=== PATIENT | female | born 1945 ===

== ENCOUNTER 2022-01-28 20:48 | Inpatient (IN) | payer OTHER ==
[~2022-01-28] VITALS: Ht 160 cm; Wt 61.2 kg
[~2022-01-28 20:48] MED LIST: ACET-9533 PO; APIX5TAB PO; BUSP15TA3 PO; GABA-636 PO; HYDR-1098 PO; INSU-1165 SUBQ; INSU100V6 SUBQ; LORA-478; ONDA-188 SL; PANT40EC56 PO; QUET100T44 PO; SOTA80TA PO
[2022-01-28 21:06] VITALS: BP 134/106
--- NOTE | 2022-01-28 21:10 | NUR ---
PT DELIA JOHNSTONS
--- NOTE | 2022-01-28 21:12 | NUR ---
PT BIB BLS FROM [facility] C/O GENERALIZED ABDOMINAL PAIN X3 DAYS, SOB X 3 DAYS. +WEAK PRODUCTIVE COUGH, +WHEEZING. PER EMS PT ALSO WITH INCREASED WEAKNESS, AND DECREASED APPETITE. PMH HTN, DM, AFIB, CKD, HLD, GERD, SCHIZOPHRENIA, COVID 19, ANXIETY
--- NOTE | 2022-01-28 21:12 | NUR ---
PT PLACED IN ROOM 8
--- NOTE | 2022-01-28 21:15 | NUR ---
NOTIFIED OF POSSIBLE SEPSIS ALERT
--- NOTE | 2022-01-28 21:20 | NUR ---
DR. COHEN AT BEDSIDE
[2022-01-28] MEDS ORDERED: NACL 0.9% 500 ML IV ONE (21:30)
[2022-01-28] MEDS ORDERED: ALBUTEROL SULFATE/IPRATROPIU 3 ML SOL IH ONE (21:30)
--- NOTE | 2022-01-28 21:34 | NUR ---
XRAY AT BEDSIDE
[2022-01-28 21:41] LABS: BASOPHILS % (AUTO) 0.9 % (0.0-2.0); EOSINOPHILS % (AUTO) 0.6 % (0.0-4.0); HEMATOCRIT 34.5 % (36-48); HEMOGLOBIN 11.1 g/dL (12.0-16.0); LYMPHOCYTES # (AUTO) 0.7 K/uL (2.5-16.5); LYMPHOCYTES % (AUTO) 13.9 % (20.5-51.1); MEAN CORPUSCULAR HEMOGLOBIN 31 pg (27-31); MEAN CORPUSCULAR HGB CONC 32 g/dL (33-37); MEAN CORPUSCULAR VOLUME 95.1 fL (80-94); MONOCYTES # (AUTO) 0.5 K/uL (0.8-1.0); MONOCYTES % (AUTO) 10.5 % (1.7-9.3); NEUTROPHILS # (AUTO) 3.7 K/uL (1.8-7.7); NEUTROPHILS % (AUTO) 74.1 % (42.2-75.2); PLATELET COUNT (AUTO) 156 K/uL (140-450); RED BLOOD CELL COUNT(AUTO) 3.63 MIL/uL (4.20-5.40); RED CELL DISTRIBUTION WIDTH 16.3 % (11.6-13.7)
--- NOTE | 2022-01-28 21:45 | NUR ---
RT PAGED FOR TX
--- NOTE | 2022-01-28 21:54 | NUR ---
RT AT BEDSIDE
[2022-01-28 22:01] LABS: ALBUMIN 2.9 g/dL (3.4-5.0); ANION GAP 16.6 (8-16); ASPARTATE AMINOTRANSFERASE 27 U/L (15-37); CARBON DIOXIDE 22.1 mmol/L (21-32); CHLORIDE 106 mmol/L (98-107); GLUCOSE 92 mg/dL (74-106); POTASSIUM 5.7 mmol/L (3.5-5.1); SODIUM SERUM 139 mmol/L (136-145); TOTAL BILIRUBIN 0.6 mg/dL (0.0-1.0); UREA NITROGEN, BLOOD 53 mg/dL (7-18)
--- NOTE | 2022-01-28 22:12 | NUR ---
DR COSME AT BEDSIDE
--- NOTE | 2022-01-28 22:15 | NUR ---
CALLED LAB TO VERIFY POTASSIUM LEVEL/ HEMOLYZED. PER LAB SPECIMEN IS MILDLY HEMOLYZED. WOULD LIKE REDRAW. LAB NOTIFIED
[2022-01-28] MEDS ORDERED: METOPROLOL 5 MG/5 ML VIAL IVP ONE (22:50)
[2022-01-28] MEDS ORDERED: OSELTAMIVIR PHOSPHATE 75 MG CAP PO ONE (22:55)
[2022-01-28 23:04] LABS: APPEARANCE,URINE HAZY (CLEAR); BILIRUBIN,URINE NEGATIVE (NEGATIVE); BLOOD, URINE 3+ (NEGATIVE); COLOR,URINE YELLOW (YELLOW); LEUKOCYTE ESTERASE ,URINE 2+ (NEGATIVE); NITRITE, URINE NEGATIVE (NEGATIVE); UGLUCOSE NEGATIVE (NEGATIVE)
[2022-01-28 23:19] LABS: RBC,URINE 0-5 /HPF (0-5); WBC,URINE 0-5 /HPF (0-5)
[2022-01-28 23:20] LABS: CHLORIDE 106 mmol/L (98-107); POTASSIUM 5.4 mmol/L (3.5-5.1); SODIUM SERUM 140 mmol/L (136-145)
[2022-01-28 23:21] LABS: ANION GAP 18.5 (8-16); CARBON DIOXIDE 20.9 mmol/L (21-32); GLUCOSE 94 mg/dL (74-106); UREA NITROGEN, BLOOD 52 mg/dL (7-18)
[2022-01-28] MEDS ORDERED: FUROSEMIDE 40 MG/4 ML VIAL IVP ONE (23:45)
[2022-01-28] MEDS ORDERED: cefTRIAXone 1,000 MG VIAL ONE (23:59)
[2022-01-29] MEDS ORDERED: QUEtiapine FUMARATE 100 MG TAB PO ONE (03:40)
--- NOTE | 2022-01-29 04:06 | NUR ---
Patient will be admitted to care of [facility]. Admited to TELE. Will go to [id number]. Belongings list completed. Report to THUAN CORTES.
--- NOTE | 2022-01-29 04:20 | NUR ---
PT TRANSPORTED FROM ER VIA GURNEY. PT IS AAOX2 WITH CONFUSION. PT IS ON 2L NC WITH NO RESPIRATORY DISTRESS. PT HAS RIGHT HAND 22 GAUGE SALINE LOCK. PT IS NON AMBULATORY. PT WAS CLEANED AND CHANGED. PLAN OF CARE DISCUSSED. SAFETY PRECAUTIONS TAKEN. WILL CONTINUE TO MONITOR THE PT.
[2022-01-29 04:30] VITALS: BP 143/93
[2022-01-29] MEDS ORDERED: ACETAMINOPHEN 325 MG TAB PO PRN (05:55)
[2022-01-29] MEDS ORDERED: MORPHINE SULFATE 2 MG/ML SYR IVP PRN (05:55)
[2022-01-29] MEDS ORDERED: NACL 0.9% 1,000 ML IV SCH (05:55)
[2022-01-29] MEDS ORDERED: ONDANSETRON 4 MG/2 ML VIAL IVP PRN (05:55)
[2022-01-29] MEDS ORDERED: INSULIN LISPRO SLIDING SCALE 100 UNITS/ML VIAL SUBQ PRN (06:05)
[2022-01-29] MEDS ORDERED: DEXTROSE 50% 50 ML SYR IVP PRN ×2 (06:05→08:00)
[2022-01-29] MEDS ORDERED: cefTRIAXone 1,000 MG VIAL ONE (06:51)
[2022-01-29] MEDS: BLOOD GLUCOSE MONITORING 1 DEV DEV FS SCH ×4 (06:57→20:25)
--- NOTE | 2022-01-29 06:58 | NUR ---
SCHEDULE MEDICATION GIVEN. NO ADVERSE REACTION NOTED. WILL CONTINUE TO MONITOR THE PT.
--- NOTE | 2022-01-29 07:13 | NUR ---
ENDORSED PT TO DAY SHIFT HOST/HOSTESS RESTAURANT SONG FOR CONTINUITY OF CARE. PT IS STABLE.
--- NOTE | 2022-01-29 07:14 | NUR ---
RECEIVED REPORT FROM SCRUM PROJECT MANAGER NURSE JANELLE FOR CONTINUITY OF CARE. PT AWAKE, IN BED. RESPIRATORY EVEN AND UNLABORED ON 2L NC. NO DISTRESS NOTED. ON DIRECTOR BUSINESS DEVELOPMENT. INCONTINENT TO BOWEL AND BLADDER. SKIN INTACT, WARM AND DRY TO TOUCH. CALL LIGHT WITHIN REACH. SAFETY PRECAUTIONS IN PLACE.
[2022-01-29 08:00] VITALS: BP 160/76
[2022-01-29] MEDS ORDERED: SOTALOL 80 MG TAB PO SCH (09:00)
[2022-01-29] MEDS ORDERED: FUROSEMIDE 40 MG/4 ML VIAL IVP SCH (09:00)
[2022-01-29] MEDS ORDERED: OSELTAMIVIR PHOSPHATE 75 MG CAP PO SCH (09:00)
[2022-01-29] MEDS: hydrALAZINE 25 MG TAB PO SCH ×3 (09:26→17:13)
[2022-01-29] MEDS: GABAPENTIN 100 MG CAP PO SCH ×3 (09:26→17:13)
[2022-01-29] MEDS: APIXABAN 2.5 MG TAB PO SCH ×3 (09:28→23:50)
[2022-01-29] MEDS: QUEtiapine FUMARATE 100 MG TAB PO SCH ×3 (09:29→23:50)
--- NOTE | 2022-01-29 09:30 | NUR ---
DUE MEDS ADMINISTERED. PT TOLERATED WELL.
--- NOTE | 2022-01-29 09:54 | NUR ---
PT CHECKED AND SEEN BY DR CASTILLO.
--- NOTE | 2022-01-29 10:00 | NUR ---
REPORT GIVEN TO SEBASTIAN FAM. SCHEDULED IV MED ADMINISTERED BY SEBASTIAN.
[2022-01-29] MEDS: FUROSEMIDE 40 MG/4 ML VIAL IVP SCH ×2 (10:16→17:00)
--- NOTE | 2022-01-29 10:24 | NUR ---
PATIENT HAS BEEN SCREENED AND CATEGORIZED MODERATE NUTRITION RISK. PATIENT WILL BE SEEN WITHIN 3-5 DAYS OF ADMISSION. 02/02/2212/28/22 REVIEWED BY VILMA BERGMAN RD
[2022-01-29] MEDS ORDERED: BLOOD GLUCOSE MONITORING 1 DEV DEV FS SCH (11:30)
[2022-01-29] MEDS: INSULIN LISPRO SLIDING SCALE 100 UNITS/ML VIAL SUBQ PRN ×3 (11:30→20:25)
--- NOTE | 2022-01-29 11:37 | NUR ---
SLIDING SCALE INSULIN GIVEN FOR BS 228.
[2022-01-29 12:00] VITALS: BP 136/74
--- NOTE | 2022-01-29 12:36 | NUR ---
MEJIA CATHETER INSERTED. PT TOLERATED WELL.
--- NOTE | 2022-01-29 13:19 | NUR ---
PT CHECKED AND SEEN BY DR VASU FISHMAN.
--- NOTE | 2022-01-29 13:32 | NUR ---
DC PLANNING PT CURRENTLY HAS INFLUENZA, THEREFORE, PT NOT SEEN IN PERSON. SW OUTREACHED TO [facility] TO GATHER COLLATERAL INFORMATION PTS EMERGENCY CONTACT IS NOT A WORKING PHONE NUMBER. SPOKE WITH CLEMENTINE WHO REPORTS PT IS RESIDENT OF [facility], DATE OF RESIDENCE 09/04/21. CLEMENTINE REPORTS EMERGENCY CONTACT [facility] [place], AND IS AWARE PHONE NUMBER IS NOT A WORKING NUMBER. CLEMENTINE REPORTS PT IS SELF RESPONSIBLE. CLEMENTINE DENIES PT HAS ADV ON FILE WITH MR HOWEVER, REPORTS PT HAS POLST ON FILE WITH FACILITY. PER CLEMENTINE, POLST IS FULL TX. PT IS REPORTED TO UTILIZE WC AT [facility] AND REQUIRES ASSISTANCE WITH ALL ADL'S. PT IS REPORTED TO BE COMPLIANT IN ALL CARE AND IS COMPLIANT WITH MEDICATIONS. MEDICATION ADMINISTERED BY STAFF. CLEMENTINE REPORTS NO KNOWN ACTIVE FAMILY INVOLVEMENT. DC PLAN IS FOR PT TO RETURN TO [facility] WHEN MEDICALLY STABLE. Addendum: 01/29/22 at 1334 by Marcelo MENA Amended: Links added.
[2022-01-29] MEDS ORDERED: ALBUTEROL SULFATE/IPRATROPIU 3 ML SOL IH PRN (14:50)
--- NOTE | 2022-01-29 14:52 | NUR ---
RECEIVED ORDER FROM DR CASTILLO FOR BREATHING TREATMENT PRN [id number] [id number].
--- NOTE | 2022-01-29 15:07 | NUR ---
PHARMACIST RECOMMENDED TO RENALLY ADJUST SOTALOL TO DAILY. DR CASTILLO MADE AWARE. OK TO ADJUST DAILY PER MD.
[2022-01-29 16:00] VITALS: BP 130/79
--- NOTE | 2022-01-29 17:22 | NUR ---
SCHEDULED MEDS ADMINISTERED. SLIDING SCALE INSULIN ADMINISTERED FOR BS 211. SEBASTIAN HYDE GAVE IVP LASIX. PT TOLERATED WELL.
--- NOTE | 2022-01-29 19:04 | NUR ---
GAVE BEDSIDE REPORT TO RN JANELLE FOR CONTINUITY OF CARE. ALL NEEDS MET THROUGHOUT SHIFT. PT IS IN STABLE CONDITION.
--- NOTE | 2022-01-29 19:05 | NUR ---
RECEIVED REPORT FROM DAY SHIFT ARIELLA ZULETA FOR CONTINUITY OF CARE. PT IS CURRENTLY RESTING IN BED WITH NO RESPIRATORY DISTRESS. PT IS ON NC 2L. PT HAS FC INSERTED DRAINING TO GRAVITY. PT HAS RIGHT HAND 22 GAUGE SALINE LOCK. BED AT THE LOWEST POSITION. PT POSITION SEMI BRANDON. CALL LIGHT WITHIN REACH. SAFETY PRECAUTIONS TAKEN. WILL CONTINUE TO MONITOR THE PT.
[2022-01-29 20:00] VITALS: BP 143/79
[2022-01-29] MEDS: OSELTAMIVIR PHOSPHATE 6 MG/ML SUSPENSION PO SCH ×2 (21:00→23:50)
--- NOTE | 2022-01-29 21:17 | NUR ---
TRIED TO GIVE PT PO MEDICATION EARLIER. PT WAS VERY DROWSY AND DID NOT WANT TO WAKE UP. THEN TRIED TO WAKE UP PT AGAIN LATER. PT WAS ABLE TO WAKE UP BUT REFUSED PO MEDICATION.
[2022-01-30] VITALS: BP 105/61
--- NOTE | 2022-01-30 | NUR ---
PT IS AWAKE AND ALERT. ASK PT IF SHE IS WILLING TO TAKE HER TAMIFLU AND OTHER MEDICATIONS. PT AGREED. 2100 SCHEDULE MEDICATION GIVEN. NO OTHER COMPLAINS. WILL CONTINUE TO MONITOR THE PT.
--- NOTE | 2022-01-30 02:32 | NUR ---
PT OBSERVED. PT IS SLEEPING COMFORTABLY IN BED. PT NOT IN ANY DISTRESS. SAFETY PRECAUTIONS TAKEN. WILL CONTINUE TO MONITOR THE PT.
[2022-01-30 04:00] VITALS: BP 104/68
--- NOTE | 2022-01-30 04:49 | NUR ---
PT IS OBSERVED. PT IS SLEEPING COMFORTABLY IN BED. PT IS NOT IN ANY DISTRESS. BREATHING EVEN AND UNLABORED. SAFETY PRECAUTIONS TAKEN. WILL CONTINUE TO MONITOR THE PT.
--- NOTE | 2022-01-30 07:15 | NUR ---
ENDORSED PT TO DAY SHIFT PATTERN STAMPER SONG FOR CONTINUITY OF CARE. PT IS STABLE.
--- NOTE | 2022-01-30 07:16 | NUR ---
RECEIVED REPORT FROM DAY SHIFT CHRISTA LUIS FOR CONTINUITY OF CARE. PT SLEEPING, AROUSABLE BY VERBAL STIMULI AND SHAKING. 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 ON SPICE BLENDER. RESPIRATIONS EVEN AND UNLABORED ON 2L, NC. NO DISTRESS NOTED. WITH MEJIA CATHETER IN PLACE, INTACT AND DRAINING WELL. CALL LIGHT WITHIN REACH. SAFETY PRECAUTIONS IN PLACE.
[2022-01-30 07:17] LABS: BASOPHILS % (AUTO) 0.8 % (0.0-2.0); EOSINOPHILS # (AUTO) 0.1 K/uL (0-0.4); HEMATOCRIT 30.2 % (36-48); HEMOGLOBIN 9.9 g/dL (12.0-16.0); LYMPHOCYTES # (AUTO) 0.5 K/uL (2.5-16.5); LYMPHOCYTES % (AUTO) 13.2 % (20.5-51.1); MEAN CORPUSCULAR HEMOGLOBIN 30 pg (27-31); MEAN CORPUSCULAR HGB CONC 33 g/dL (33-37); MONOCYTES # (AUTO) 0.4 K/uL (0.8-1.0); MONOCYTES % (AUTO) 11.5 % (1.7-9.3); NEUTROPHILS # (AUTO) 2.5 K/uL (1.8-7.7); NEUTROPHILS % (AUTO) 70.5 % (42.2-75.2); PLATELET COUNT (AUTO) 137 K/uL (140-450); RED BLOOD CELL COUNT(AUTO) 3.25 MIL/uL (4.20-5.40); RED CELL DISTRIBUTION WIDTH 15.3 % (11.6-13.7); WHITE BLOOD COUNT (AUTO) 3.6 K/uL (4.8-10.8)
[2022-01-30 07:20] LABS: ANION GAP 13.7 (8-16); CARBON DIOXIDE 23.2 mmol/L (21-32); CHLORIDE 105 mmol/L (98-107); GLUCOSE 127 mg/dL (74-106); POTASSIUM 3.9 mmol/L (3.5-5.1); SODIUM SERUM 138 mmol/L (136-145); UREA NITROGEN, BLOOD 55 mg/dL (7-18)
[2022-01-30 07:31] LABS: MAGNESIUM 1.8 mg/dL (1.8-2.4); PHOSPHORUS 5.3 mg/dL (2.5-4.9)
[2022-01-30 08:00] VITALS: BP 130/80
[2022-01-30] MEDS: BLOOD GLUCOSE MONITORING 1 DEV DEV FS SCH ×4 (08:16→20:41)
--- NOTE | 2022-01-30 08:16 | NUR ---
NO INSULIN COVERAGE FOR BS 127.
--- NOTE | 2022-01-30 08:39 | NUR ---
RECEIVED CRITICAL LAB VALUE FOR MRSA NARES +, MADE AWARE, ORDERS RECEIVED.
[2022-01-30] MEDS ORDERED: SOTALOL 80 MG TAB PO SCH (09:00)
[2022-01-30] MEDS: hydrALAZINE 25 MG TAB PO SCH ×3 (09:09→16:36)
[2022-01-30] MEDS: QUEtiapine FUMARATE 100 MG TAB PO SCH ×2 (09:10→20:50)
[2022-01-30] MEDS: GABAPENTIN 100 MG CAP PO SCH ×3 (09:10→16:36)
[2022-01-30] MEDS: CHLORHEXADINE GLUC 2% CLOTH TP SCH (09:10)
[2022-01-30] MEDS: MUPIROCIN CA NASAL 2% 1GM TUBE NS SCH (09:11)
[2022-01-30] MEDS: APIXABAN 2.5 MG TAB PO SCH ×2 (09:11→20:50)
--- NOTE | 2022-01-30 09:24 | NUR ---
PT CHECKED AND SEEN BY DR CASTILLO. PER MD GÓMEZ TO GIVE ELIQUIS. ADMINISTERED DUE MEDS. PT TOLERATED WELL.
[2022-01-30] MEDS: FUROSEMIDE 40 MG/4 ML VIAL IVP SCH ×2 (09:27→16:37)
--- NOTE | 2022-01-30 09:27 | NUR ---
IV MED GIVEN BY SEBASTIAN PEOPLES.
[2022-01-30] MEDS: INSULIN LISPRO SLIDING SCALE 100 UNITS/ML VIAL SUBQ PRN ×3 (11:32→20:54)
--- NOTE | 2022-01-30 11:36 | NUR ---
SLIDING SCALE INSULIN ADMINISTERED FOR BS 175.
[2022-01-30 12:00] VITALS: BP 138/78
[2022-01-30 16:00] VITALS: BP 110/54
--- NOTE | 2022-01-30 16:43 | NUR ---
ADMINISTERED DUE MEDS. IV MED GIVEN BY SEBASTIAN PEOPLES. SLIDING SCALE INSULIN GIVEN FOR BS 188. PT TOLERATED WELL.
--- NOTE | 2022-01-30 17:12 | NUR ---
RT AT BEDSIDE. NC WAS TAKEN OFF OF PT. PT NOW ON RA SATTING AT 96%. WILL CONTINUE TO MONITOR.
--- NOTE | 2022-01-30 19:15 | NUR ---
GAVE BEDSIDE REPORT TO SEBASTIAN LUIS AND MILTON MANNING FOR CONTINUITY OF CARE. ALL NEEDS MET THROUGHOUT SHIFT. PT IS IN STABLE CONDITION.
--- NOTE | 2022-01-30 19:20 | NUR ---
RECEIVED PATIENT LYING ON THE BED, ALERT, ORIENTED TO PERSON, NO SIGNS OF DISTRESS NOTED, ON ROOM AIR, HAS MEJIA CATHETER DRAINING LIGHT YELLOW URINE TO BAG. PATIENT HAS IV ACCESS SITE ON LEFT HAND G24, FLUSH WITHOUT RESISTANCE, TKO. CALL LIGHT WITHIN REACH, BED IN LOW AND LOCKED POSITION. PATIENT ON CONTACT AND DROPLET PRECAUTIONS, POSITIVE FOR MRSA AND INFLUENZA A FROM REPORT.
[2022-01-30 20:00] VITALS: BP 95/53
[2022-01-30] MEDS: SOTALOL 80 MG TAB PO SCH (20:48)
[2022-01-30] MEDS: OSELTAMIVIR PHOSPHATE 6 MG/ML SUSPENSION PO SCH (20:53)
--- NOTE | 2022-01-30 21:00 | NUR ---
DUE MEDICATIONS GIVEN ORDERED. SOTATOL 80MG TAB HOLD PER MD, BP 95/53, HR 60 AND PATIENT ON SR ON TELEMETRY. SAFETY PRECAUTIONS MAINTAINED, CALL LIGHT WITHIN REACH. WILL CONTINUE TO MONITOR THE PATIENT.
[2022-01-31] VITALS: BP 123/53
--- NOTE | 2022-01-31 00:05 | NUR ---
VITALS TAKEN T 98.6, HR 63, BP 123/53, RESP 16 AND O2 SATS 93% ON ROOM AIR, PATIENT DENIES PAIN, DENIES SOB. BEDSIDE CARE DONE, PATIENT REPOSITIONED, CALL LIGHT WITHIN REACH, BED IN LOW AND LOCKED POSITION. WILL CONTINUE TO MONITOR THE PATIENT.
--- NOTE | 2022-01-31 02:56 | NUR ---
CHECKED ON PATIENT. PATIENT IS ASLEEP, BREATHING EVEN AND NON LABORED ON ROOM AIR. SAFETY PRECAUTIONS IN PLACE. WILL CONTINUE TO MONITOR THE PATIENT.
[2022-01-31 04:00] VITALS: BP 142/58
--- NOTE | 2022-01-31 04:10 | NUR ---
MORNING CARE DONE, PATIENT DENIES PAIN, NO SIGNS OF DISTRESS NOTED. CALL LIGHT WITHIN REACH.
--- NOTE | 2022-01-31 05:30 | NUR ---
IV ROCEPHIN GIVEN ORDERED.
[2022-01-31] MEDS: BLOOD GLUCOSE MONITORING 1 DEV DEV FS SCH ×4 (06:31→20:53)
[2022-01-31] MEDS: INSULIN LISPRO SLIDING SCALE 100 UNITS/ML VIAL SUBQ PRN ×3 (06:32→17:32)
--- NOTE | 2022-01-31 07:19 | NUR ---
ENDORSED PATIENT TO DAY NURSE ALBA FOR CONTINUITY OF CARE. NEEDS MET THROUGHOUT THE SHIFT. PATIENT IN STABLE CONDITION.
[2022-01-31 07:26] LABS: BASOPHILS % (AUTO) 0.4 % (0.0-2.0); EOSINOPHILS # (AUTO) 0.1 K/uL (0-0.4); EOSINOPHILS % (AUTO) 3.5 % (0.0-4.0); HEMATOCRIT 29.1 % (36-48); HEMOGLOBIN 9.6 g/dL (12.0-16.0); LYMPHOCYTES # (AUTO) 0.8 K/uL (2.5-16.5); LYMPHOCYTES % (AUTO) 18.5 % (20.5-51.1); MEAN CORPUSCULAR HEMOGLOBIN 31 pg (27-31); MEAN CORPUSCULAR HGB CONC 33 g/dL (33-37); MEAN CORPUSCULAR VOLUME 93.1 fL (80-94); MONOCYTES # (AUTO) 0.5 K/uL (0.8-1.0); MONOCYTES % (AUTO) 12.3 % (1.7-9.3); NEUTROPHILS # (AUTO) 2.8 K/uL (1.8-7.7); NEUTROPHILS % (AUTO) 65.3 % (42.2-75.2); PLATELET COUNT (AUTO) 139 K/uL (140-450); RED BLOOD CELL COUNT(AUTO) 3.13 MIL/uL (4.20-5.40); RED CELL DISTRIBUTION WIDTH 15.1 % (11.6-13.7); WHITE BLOOD COUNT (AUTO) 4.2 K/uL (4.8-10.8)
[2022-01-31 07:29] LABS: CARBON DIOXIDE 25.1 mmol/L (21-32); CHLORIDE 101 mmol/L (98-107); CREATININE 3.3 mg/dL (0.6-1.3); GLUCOSE 167 mg/dL (74-106); POTASSIUM 4.1 mmol/L (3.5-5.1); SODIUM SERUM 136 mmol/L (136-145); UREA NITROGEN, BLOOD 58 mg/dL (7-18)
--- NOTE | 2022-01-31 07:36 | NUR ---
GOT REPORT FROM THE NIGHT NURSE, PT AWAKE DISCUSSED POC FOR THE DAY NO SOB.[id number]
[2022-01-31] MEDS: APIXABAN 2.5 MG TAB PO SCH ×2 (09:24→20:48)
[2022-01-31] MEDS: MUPIROCIN CA NASAL 2% 1GM TUBE NS SCH (09:24)
[2022-01-31] MEDS: CHLORHEXADINE GLUC 2% CLOTH TP SCH (09:25)
[2022-01-31] MEDS: hydrALAZINE 25 MG TAB PO SCH ×3 (09:25→17:23)
[2022-01-31] MEDS: GABAPENTIN 100 MG CAP PO SCH ×3 (09:28→17:23)
[2022-01-31] MEDS: QUEtiapine FUMARATE 100 MG TAB PO SCH ×2 (09:29→20:49)
[2022-01-31] MEDS: FUROSEMIDE 40 MG/4 ML VIAL IVP SCH (09:32)
[2022-01-31] MEDS: SOTALOL 80 MG TAB PO SCH ×2 (09:35→20:43)
[2022-01-31] MEDS: ERTAPENEM SODIUM 500 MG in NACL 0.9% 50 ML IV SCH (11:53)
[2022-01-31 12:46] VITALS: BP 133/60
[2022-01-31 16:00] VITALS: BP 142/68
--- NOTE | 2022-01-31 19:02 | NUR ---
RECEIVED REPORT FROM DAY SHIFT NURSE ALBA FOR CONTINUITY OF CARE. PT SLEEPING, EASILY AROUSABLE BY VERBAL STIMULI. RESPIRATIONS EVEN AND UNLABORED ON RA. NO DISTRESS NOTED. ON GRATING MACHINE OPERATOR. MEJIA CATHETER IN PLACE. DRAINING URINE WELL. SKIN INATCT, WARM AND DRY TO TOUCH. PT IS BLIND. PT REORIENTED TO CALL LIGHT. SAFETY PRECAUTIONS IN PLACE.
--- NOTE | 2022-01-31 19:44 | NUR ---
Patient's Plan of Care was discussed and reviewed with ARABIC TRANSLATOR: DAIJA ZULETA
[2022-01-31 20:00] VITALS: BP 126/56
[2022-01-31] MEDS: OSELTAMIVIR PHOSPHATE 6 MG/ML SUSPENSION PO SCH (20:50)
--- NOTE | 2022-01-31 21:01 | NUR ---
ADMINISTERED DUE MEDS. NO INSULIN COVERAGE FOR BS 136. PT CONTINUOUSLY MONITORED.
[2022-02-01] VITALS: BP 132/60
--- NOTE | 2022-02-01 01:05 | NUR ---
PT SLEEPING. NO DISTRESS NOTED. SAFETY PRECAUTIONS IN PLACE.
[2022-02-01 04:00] VITALS: BP 141/66
--- NOTE | 2022-02-01 04:45 | NUR ---
PERINEAL CARE DONE WITH SHOE REPAIRMAN. DRAINED MEJIA CATHETER. REPOSITIONED PT. PT REMAINED CLEAN AND DRY.
[2022-02-01] MEDS: BLOOD GLUCOSE MONITORING 1 DEV DEV FS SCH ×4 (06:41→21:03)
--- NOTE | 2022-02-01 06:42 | NUR ---
BLOOD SUGAR CHECK DONE. NO SLIDING SCALE INSULIN FOR BS 111. PT SLEEPING. RESPIRATIONS EVEN AND UNLABORED. NO DISTRESS NOTED.
--- NOTE | 2022-02-01 07:14 | NUR ---
GAVE BEDSIDE REPORT TO DAY SHIFT NURSE LM FOR CONTINUITY OF CARE. ALL NEEDS MET THROUGHOUT SHIFT. PT IS STABLE.
--- NOTE | 2022-02-01 07:15 | NUR ---
RECEIVED PT FROM TICKETING AGENT NURSE FOR CONTINUITY OF CARE.
[2022-02-01 07:27] LABS: BASOPHILS % (AUTO) 0.7 % (0.0-2.0); EOSINOPHILS # (AUTO) 0.2 K/uL (0-0.4); EOSINOPHILS % (AUTO) 6.1 % (0.0-4.0); HEMATOCRIT 28.9 % (36-48); HEMOGLOBIN 9.7 g/dL (12.0-16.0); LYMPHOCYTES # (AUTO) 0.8 K/uL (2.5-16.5); LYMPHOCYTES % (AUTO) 23.9 % (20.5-51.1); MEAN CORPUSCULAR HEMOGLOBIN 31 pg (27-31); MEAN CORPUSCULAR HGB CONC 34 g/dL (33-37); MEAN CORPUSCULAR VOLUME 91.3 fL (80-94); MONOCYTES # (AUTO) 0.5 K/uL (0.8-1.0); NEUTROPHILS % (AUTO) 56.3 % (42.2-75.2); PLATELET COUNT (AUTO) 131 K/uL (140-450); RED BLOOD CELL COUNT(AUTO) 3.17 MIL/uL (4.20-5.40); RED CELL DISTRIBUTION WIDTH 14.9 % (11.6-13.7); WHITE BLOOD COUNT (AUTO) 3.5 K/uL (4.8-10.8)
[2022-02-01 08:00] VITALS: BP 130/67
[2022-02-01] MEDS: hydrALAZINE 25 MG TAB PO SCH ×3 (08:58→16:38)
[2022-02-01] MEDS: MUPIROCIN CA NASAL 2% 1GM TUBE NS SCH (08:58)
[2022-02-01] MEDS: SOTALOL 80 MG TAB PO SCH ×2 (08:58→21:02)
[2022-02-01] MEDS: QUEtiapine FUMARATE 100 MG TAB PO SCH ×2 (08:59→21:03)
[2022-02-01] MEDS: GABAPENTIN 100 MG CAP PO SCH ×3 (08:59→16:38)
[2022-02-01] MEDS: FUROSEMIDE 40 MG/4 ML VIAL IVP SCH (09:00)
[2022-02-01] MEDS: APIXABAN 2.5 MG TAB PO SCH ×2 (09:00→21:02)
[2022-02-01] MEDS: CHLORHEXADINE GLUC 2% CLOTH TP SCH (09:13)
--- NOTE | 2022-02-01 09:19 | NUR ---
ADMINISTERED ALL SCHEDULED ORAL MEDS. PT TOLERATED WELL.
[2022-02-01 09:57] LABS: ANION GAP 17.1 (8-16); CARBON DIOXIDE 22.6 mmol/L (21-32); CHLORIDE 105 mmol/L (98-107); CREATININE 2.9 mg/dL (0.6-1.3); GLUCOSE 130 mg/dL (74-106); POTASSIUM 3.7 mmol/L (3.5-5.1); SODIUM SERUM 141 mmol/L (136-145); UREA NITROGEN, BLOOD 57 mg/dL (7-18)
[2022-02-01] MEDS: ERTAPENEM SODIUM 500 MG in NACL 0.9% 50 ML IV SCH (11:00)
[2022-02-01 12:00] VITALS: BP 121/57
[2022-02-01] MEDS: INSULIN LISPRO SLIDING SCALE 100 UNITS/ML VIAL SUBQ PRN ×2 (12:43→21:04)
[2022-02-01 16:00] VITALS: BP 140/75
--- NOTE | 2022-02-01 19:10 | NUR ---
ENDORSED PT TO ROUGHER FOR CEMENT NURSE FOR CONTINUITY OF CARE. PT IN STABLE CONDITION.
--- NOTE | 2022-02-01 19:11 | NUR ---
RECEIVED PT FROM DAY SHIFT NURSE LM FOR CONTINUITY OF CARE. PT AWAKE IN BED. ON ERGONOMICS CONSULTANT. RESPIRATIONS EVEN AND UNLABORED ON RA. NO DISTRESS NOTED. NO C/O OF PAIN. MEJIA CATHETER IN PLACE, DRAINING YELLOW URINE. IV SITE ON RH 22G, SL. CALL LIGHT WITHIN REACH. SAFETY PRECAUTIONS IN PLACE.
--- NOTE | 2022-02-01 19:45 | NUR ---
REVIEWED AND DISCUSSED PATIENT CARE WITH ARIELLA CHOE.
[2022-02-01 20:00] VITALS: BP 116/55
--- NOTE | 2022-02-01 21:20 | NUR ---
ADMINISTERED DUE MEDS. PT TOLERATED WELL. PT TOO SLEEPY, ATE A 15% OF HER DINNER AND WENT BACK TO SLEEP.
[2022-02-02] VITALS: BP 126/48
--- NOTE | 2022-02-02 02:33 | NUR ---
PT SLEEPING WITH VISIBLE CHEST RISE AND FALL. NO ACUTE DISTRESS NOTED. SAFETY PRECAUTIONS IN PLACE.
[2022-02-02 04:00] VITALS: BP 130/55
--- NOTE | 2022-02-02 05:54 | NUR ---
MORNING CARE DONE. PT NO C/O OF PAIN. NO SOB. NO DIZZINESS. PT REMAINED CLEAN AND DRY.
[2022-02-02] MEDS: BLOOD GLUCOSE MONITORING 1 DEV DEV FS SCH ×4 (06:39→21:22)
[2022-02-02] MEDS: INSULIN LISPRO SLIDING SCALE 100 UNITS/ML VIAL SUBQ PRN ×3 (06:40→21:20)
--- NOTE | 2022-02-02 06:43 | NUR ---
SLIDING SCALE INSULIN ADMINISTERED FOR BS 160.
--- NOTE | 2022-02-02 07:10 | NUR ---
RECEIVED REPORT FROM MEAT DRESSER NURSE SONG FOR CONTINUITY OF CARE. PT STABLE IN BED RESTING. NO SIGNS OF DISTRESS. ALL SAFETY PRECAUTIONS IN PLACE. WILL CONTINUE TO MONITOR.
[2022-02-02 07:15] LABS: HEMATOCRIT 29.4 % (36-48); HEMOGLOBIN 9.8 g/dL (12.0-16.0); MEAN CORPUSCULAR HEMOGLOBIN 31 pg (27-31); MEAN CORPUSCULAR HGB CONC 34 g/dL (33-37); MEAN CORPUSCULAR VOLUME 91.4 fL (80-94); PLATELET COUNT (AUTO) 147 K/uL (140-450); RED BLOOD CELL COUNT(AUTO) 3.21 MIL/uL (4.20-5.40); RED CELL DISTRIBUTION WIDTH 14.9 % (11.6-13.7); WHITE BLOOD COUNT (AUTO) 3.9 K/uL (4.8-10.8)
--- NOTE | 2022-02-02 07:23 | NUR ---
GAVE BEDSIDE REPORT TO RN MARY ELLEN FOR CONTINUITY OF CARE. ALL NEEDS MET THROUGHOUT SHIFT. PT IS STABLE.
[2022-02-02 08:00] VITALS: BP 120/53
[2022-02-02 08:38] LABS: LYMPHOCYTES % (MANUAL) 30 % (20-46)
[2022-02-02 08:39] LABS: EOSINOPHILS % (MANUAL) 2 % (0-4); MONOCYTES % (MANUAL) 11 % (5-12)
[2022-02-02 09:08] LABS: ANION GAP 14.9 (8-16); CARBON DIOXIDE 25.8 mmol/L (21-32); CHLORIDE 101 mmol/L (98-107); CREATININE 2.8 mg/dL (0.6-1.3); GLUCOSE 159 mg/dL (74-106); POTASSIUM 3.7 mmol/L (3.5-5.1); SODIUM SERUM 138 mmol/L (136-145); UREA NITROGEN, BLOOD 48 mg/dL (7-18)
[2022-02-02] MEDS: MUPIROCIN CA NASAL 2% 1GM TUBE NS SCH (09:09)
[2022-02-02] MEDS: FUROSEMIDE 40 MG/4 ML VIAL IVP SCH (09:09)
[2022-02-02] MEDS: SOTALOL 80 MG TAB PO SCH ×2 (09:10→21:16)
[2022-02-02] MEDS: hydrALAZINE 25 MG TAB PO SCH ×3 (09:10→17:14)
[2022-02-02] MEDS: APIXABAN 2.5 MG TAB PO SCH ×2 (09:11→21:18)
[2022-02-02] MEDS: QUEtiapine FUMARATE 100 MG TAB PO SCH ×2 (09:12→21:17)
[2022-02-02] MEDS: CHLORHEXADINE GLUC 2% CLOTH TP SCH (09:12)
[2022-02-02] MEDS: GABAPENTIN 100 MG CAP PO SCH ×3 (09:12→17:14)
[2022-02-02] MEDS ORDERED: ERTA1VIA2 IJ (11:05)
[2022-02-02] MEDS ORDERED: APIX2.5 PO (11:05)
[2022-02-02] MEDS: ERTAPENEM SODIUM 500 MG in NACL 0.9% 50 ML IV SCH (11:22)
[2022-02-02 12:00] VITALS: BP 136/63
[2022-02-02 16:00] VITALS: BP 130/50
--- NOTE | 2022-02-02 19:05 | NUR ---
ENDORSED PT TO COMPUTER EDUCATION TEACHER NURSE ARCENIO FOR CONTINUITY OF CARE. PT STABLE AT THIS TIME.
--- NOTE | 2022-02-02 19:10 | NUR ---
RECEIVED PT FROM AM NURSE FOR CONTINUITY OF CARE. PT IS STABLE
[2022-02-02 20:00] VITALS: BP 145/83
[2022-02-03] VITALS (7 sets, daily range): BP systolic 121–152; BP diastolic 43–86
--- NOTE | 2022-02-03 00:05 | NUR ---
PATIENT ASLEEP, ALL SAFETY MEASURES IN PLACE,NO DISTRESS NOTED
[2022-02-03] MEDS: BLOOD GLUCOSE MONITORING 1 DEV DEV FS SCH ×4 (06:47→21:33)
[2022-02-03 06:52] LABS: BASOPHILS % (AUTO) 0.6 % (0.0-2.0); EOSINOPHILS # (AUTO) 0.2 K/uL (0-0.4); EOSINOPHILS % (AUTO) 4.6 % (0.0-4.0); HEMATOCRIT 29.8 % (36-48); HEMOGLOBIN 9.8 g/dL (12.0-16.0); LYMPHOCYTES # (AUTO) 1.4 K/uL (2.5-16.5); LYMPHOCYTES % (AUTO) 25.8 % (20.5-51.1); MEAN CORPUSCULAR HEMOGLOBIN 30 pg (27-31); MEAN CORPUSCULAR HGB CONC 33 g/dL (33-37); MONOCYTES # (AUTO) 0.5 K/uL (0.8-1.0); MONOCYTES % (AUTO) 9.6 % (1.7-9.3); NEUTROPHILS # (AUTO) 3.2 K/uL (1.8-7.7); NEUTROPHILS % (AUTO) 59.4 % (42.2-75.2); PLATELET COUNT (AUTO) 152 K/uL (140-450); RED BLOOD CELL COUNT(AUTO) 3.24 MIL/uL (4.20-5.40); RED CELL DISTRIBUTION WIDTH 14.7 % (11.6-13.7); WHITE BLOOD COUNT (AUTO) 5.3 K/uL (4.8-10.8)
--- NOTE | 2022-02-03 07:05 | NUR ---
ENDORSED PT TO AM NURSE FOR CONTINUITY OF CARE . PT IS STABLE
--- NOTE | 2022-02-03 07:05 | NUR ---
RECEIVED REPORT FROM PRIMARY MILL ROLLER NURSE ARCENIO FOR CONTINUITY OF CARE. PT STABLE IN BED RESTING. NO SIGNS OF DISTRESS. ALL SAFETY PRECAUTIONS IN PLACE. WILL CONTINUE TO MONITOR.
[2022-02-03 07:13] LABS: ANION GAP 12.6 (8-16); CARBON DIOXIDE 27.3 mmol/L (21-32); CHLORIDE 100 mmol/L (98-107); CREATININE 2.9 mg/dL (0.6-1.3); GLUCOSE 153 mg/dL (74-106); POTASSIUM 3.9 mmol/L (3.5-5.1); SODIUM SERUM 136 mmol/L (136-145); UREA NITROGEN, BLOOD 50 mg/dL (7-18)
[2022-02-03] MEDS: FUROSEMIDE 40 MG/4 ML VIAL IVP SCH (09:06)
[2022-02-03] MEDS: MUPIROCIN CA NASAL 2% 1GM TUBE NS SCH (09:06)
[2022-02-03] MEDS: SULFAMETH/TRIMETH DS 800/160MG 1 TAB PO SCH (09:07)
[2022-02-03] MEDS: QUEtiapine FUMARATE 100 MG TAB PO SCH ×2 (09:08→21:34)
[2022-02-03] MEDS: GABAPENTIN 100 MG CAP PO SCH ×3 (09:09→17:07)
[2022-02-03] MEDS: hydrALAZINE 25 MG TAB PO SCH ×3 (09:10→17:00)
[2022-02-03] MEDS: SOTALOL 80 MG TAB PO SCH ×2 (09:10→21:34)
[2022-02-03] MEDS: CHLORHEXADINE GLUC 2% CLOTH TP SCH (09:10)
[2022-02-03] MEDS: APIXABAN 2.5 MG TAB PO SCH ×2 (09:12→21:36)
[2022-02-03] MEDS: INSULIN LISPRO SLIDING SCALE 100 UNITS/ML VIAL SUBQ PRN (11:42)
[2022-02-03] MEDS ORDERED: SULF-58 PO (13:54)
--- NOTE | 2022-02-03 16:34 | NUR ---
DC PLANNING: RECEIVED A CALL FROM CHARGE NURSE, STATING THAT [facility] IS NOT ABLE TO TAKE THE PATIENT BACK. SPOKE TO ZAINA RN FLOAT AT [facility]. PER ZAINA, THEY ARE NOT ABLE TO TAKE THE PATIENT BACK DUE TO THEY ARE NOT ABLE TO PROVIDE THE CARE THE PATIENT WILL BE NEEDING. PER ZAINA, PATIENT IS NOT ABLE TO ADMINISTER HER OWN INSULIN NOW AND THEY ARE AN ASSISTED LIVING AND NOT A CLINICAL FACILITY. ZAINA ALSO STATED THAT THE PATIENT WILL NEED FACILITY THAT IS ABLE TO MEET THE PATIENT'S NEEDS. CHARGE NURSE MADE AWARE. [facility] TRANSPORT MADE AWARE TO CANCEL TRANSPORT REQUEST. Addendum: 02/04/22 at 1442 by Leisa Rick RN DC PLANNING: [facility] ACCEPTED PATIENT CAN GO TO ROOM 21B. # TO GIVE REPORT [phone] RECEIVED AUTH FROM NAJMA AT [facility] [id number]. AUTH FOR TRANSPORT [id number] ARRANGED TRANSPORT WITH [facility] SHELL MACHINE OPERATOR TIME 5 PM. NOTIFIED CHAPIN CORTES. CM TO FOLLOW.
--- NOTE | 2022-02-03 19:20 | NUR ---
ENDORSED PT TO DIGITAL MEASUREMENT ADVISOR NURSE GURMEET FOR CONTINUITY OF CARE. PT STABLE AT THIS TIME.
--- NOTE | 2022-02-03 19:21 | NUR ---
RECD. PATIENT RESTING IN BED,AWAKE, A/OX2, CONFUSED AT TIMES. RESPIRATION EVEN AND UNLABORED. ON 02 AT 2 LITERS VIA N/C, 02 SATURATION 96 - 99%. IV OF NS INFUSING AT TKO, RIGHT HAND G22. LEGALLY BLIND, REORIENTED TO HOSPITAL ENVIRONMENT. F/C PATENT DRAINING CLEAR YELLOW URINE. DENIES PAIN 0/10.
--- NOTE | 2022-02-03 19:56 | NUR ---
RECEIVED REPORT FROM AM SHIFT. PATIENT WAS SEEN AND ASSESSED. PATIENT IS ON NASAL CANNULA 2L WITH SPO2 99%. NOTICED ADEQUATE BILATERAL CHEST RISE AND FALL. PATIENT IS IN NO RESPIRATORY DISTRESS AT THIS TIME. BILATERAL BREATH SOUNDS ON AUSCULTATION; UPPER LOBES: CLEAR AND LOWER LOBES: DIMINISHED. PRN TX NOT INDICATED AT THIS TIME. PATIENT WAS INFORMED TO CALL RN OR RT WHEN EXPERIENCING SOB OR WHEN WHEEZING. WILL CONTINUE TO MONITOR PATIENT.
--- NOTE | 2022-02-03 20:00 | NUR ---
Patient's Plan of Care was discussed and reviewed with NOHEMI KRISHNAN:
--- NOTE | 2022-02-03 21:35 | NUR ---
SCHEDULED MEDICATIONS ADMINISTERED WITH APPLE SAUCE. TOLERATED WELL.
--- NOTE | 2022-02-04 00:30 | NUR ---
SHOUTING, CONFUSED. REORIENTED TO HOSPITAL SETTING.
--- NOTE | 2022-02-04 01:00 | NUR ---
SLEEPING COMFORTABLY IN BED. RESPIRATION EVEN AND UNLABORED.
--- NOTE | 2022-02-04 02:00 | NUR ---
IV INFILTRATED, NEW IV LINE INSERTED BY SEBASTIAN GRIMALDO AT THE LEFT HAND G22.
--- NOTE | 2022-02-04 04:00 | NUR ---
SLEEPING COMFORTABLY ON HER LEFT SIDE. NO APPARENT DISTRESS NOTED.
[2022-02-04] MEDS: BLOOD GLUCOSE MONITORING 1 DEV DEV FS SCH ×2 (06:16→11:45)
[2022-02-04 06:41] LABS: ANION GAP 12.2 (8-16); BASOPHILS % (AUTO) 0.5 % (0.0-2.0); CARBON DIOXIDE 30.7 mmol/L (21-32); CHLORIDE 98 mmol/L (98-107); CREATININE 2.9 mg/dL (0.6-1.3); EOSINOPHILS # (AUTO) 0.2 K/uL (0-0.4); EOSINOPHILS % (AUTO) 3.6 % (0.0-4.0); GLUCOSE 139 mg/dL (74-106); HEMATOCRIT 31.7 % (36-48); HEMOGLOBIN 10.6 g/dL (12.0-16.0); LYMPHOCYTES # (AUTO) 1.2 K/uL (2.5-16.5); LYMPHOCYTES % (AUTO) 19.3 % (20.5-51.1); MEAN CORPUSCULAR HEMOGLOBIN 31 pg (27-31); MEAN CORPUSCULAR HGB CONC 33 g/dL (33-37); MEAN CORPUSCULAR VOLUME 91.9 fL (80-94); MONOCYTES # (AUTO) 0.5 K/uL (0.8-1.0); MONOCYTES % (AUTO) 7.8 % (1.7-9.3); NEUTROPHILS # (AUTO) 4.3 K/uL (1.8-7.7); NEUTROPHILS % (AUTO) 68.8 % (42.2-75.2); PLATELET COUNT (AUTO) 172 K/uL (140-450); POTASSIUM 3.9 mmol/L (3.5-5.1); RED BLOOD CELL COUNT(AUTO) 3.45 MIL/uL (4.20-5.40); RED CELL DISTRIBUTION WIDTH 14.6 % (11.6-13.7); SODIUM SERUM 137 mmol/L (136-145); UREA NITROGEN, BLOOD 49 mg/dL (7-18); WHITE BLOOD COUNT (AUTO) 6.2 K/uL (4.8-10.8)
--- NOTE | 2022-02-04 07:10 | NUR ---
CONDITION REMAIN STABLE. ENDORSED TO AM NURSE FOR CONTINUITY OF CARE.
--- NOTE | 2022-02-04 07:45 | NUR ---
RECEIVED PT ON 2L NASAL CANNULA. SATURATION WAS 99%. CLEAR BREATH SOUNDS UPPER LOBES. DIMINISHED IN THE BASES. NO RESPIRATORY DISTRESS NOTED. WILL CONTINUE TO MONITOR.
[2022-02-04 08:00] VITALS: BP 166/81
[2022-02-04] MEDS ORDERED: FUROSEMIDE 40 MG TAB PO SCH (09:00)
[2022-02-04] MEDS: SULFAMETH/TRIMETH DS 800/160MG 1 TAB PO SCH (09:27)
[2022-02-04] MEDS: GABAPENTIN 100 MG CAP PO SCH ×2 (09:27→13:46)
[2022-02-04] MEDS: SOTALOL 80 MG TAB PO SCH (09:27)
[2022-02-04] MEDS: QUEtiapine FUMARATE 100 MG TAB PO SCH (09:27)
[2022-02-04] MEDS: hydrALAZINE 25 MG TAB PO SCH ×2 (09:28→13:46)
[2022-02-04] MEDS: APIXABAN 2.5 MG TAB PO SCH (09:28)
[2022-02-04 09:29] VITALS: BP 112/77
[2022-02-04] MEDS: INSULIN LISPRO SLIDING SCALE 100 UNITS/ML VIAL SUBQ PRN (11:48)
[2022-02-04 13:47] VITALS: BP 163/58
--- NOTE | 2022-02-04 15:38 | NUR ---
PHYSICAL THERAPY CO-SIGN The Physical Therapy Progress Notes documented by Rattle Leak And Squeak Repairer have been reviewed. Reviewed/Co-Signed by: Angela Chen PT Documentation Done by:DANIEL THOMAS DIRECT RESPONSE CONSULTANT Addendum: 02/04/22 at 1539 by Angela Chen PT Amended: Links added.
--- NOTE | 2022-02-04 16:01 | NUR ---
REPORT GIVEN TO ROLO AT [facility].
--- NOTE | 2022-02-04 16:18 | NUR ---
02/04/22 RD INITIAL ASSESSMENT COMPLETED PLEASE REFER TO NUTRITION ASSESSMENT UNDER CARE ACTIVITY FOR ESTIMATED NUTRITIONAL NEEDS. 1. RECOMMEND RENAL CCHO 60 GRAM DIET. 2. RECOMMEND GLUCERNA 1XDAY. 2. MONITOR GI, LAB VALUES, PO INTAKE. 3. RD TO FOLLOW-UP 3-5 DAYS, MODERATE RISK REVIEWED BY VILMA BERGMAN RD
== END 2022-02-04 17:10 | DRG 720 ==
LOC: MED 20:48 → MTU 01-29 03:50
PROVIDERS: ADMIT Hospitalist; ATTEND Hospitalist
DX: A41.9 Sepsis, unspecified organism (principal); N17.0 Acute kidney failure with tubular necrosis; I50.43 Acute on chronic combined systolic (congestive) and diastolic (congestive) heart failure; G93.41 Metabolic encephalopathy; E44.0 Moderate protein-calorie malnutrition; I42.9 Cardiomyopathy, unspecified; N39.0 Urinary tract infection, site not specified; E11.22 Type 2 diabetes mellitus with diabetic chronic kidney disease; B96.20 Unspecified Escherichia coli [E. coli] as the cause of diseases classified elsewhere; D64.9 Anemia, unspecified; I48.0 Paroxysmal atrial fibrillation; E78.5 Hyperlipidemia, unspecified; J10.1 Influenza due to other identified influenza virus with other respiratory manifestations; I13.0 Hypertensive heart and chronic kidney disease with heart failure and stage 1 through stage 4 chronic kidney disease, or unspecified chronic kidney disease; F20.9 Schizophrenia, unspecified; F41.9 Anxiety disorder, unspecified; R41.0 Disorientation, unspecified; I25.10 Atherosclerotic heart disease of native coronary artery without angina pectoris; N18.30 Chronic kidney disease, stage 3 unspecified; Z90.89 Acquired absence of other organs; Z91.013 Allergy to seafood; Z95.1 Presence of aortocoronary bypass graft; Z88.0 Allergy status to penicillin; Z95.0 Presence of cardiac pacemaker; Z68.23 Body mass index [BMI] 23.0-23.9, adult
CPT/HCPCS: 36415; 71045; 80048; 80053; 81001; 82948; 83036; 83605; 83735; 83880; 84100; 84443; 84484; 85025; 87040; 87081; 87086; 93005; 96361; 96365; 96375; 97110; 97112; 97163-GP; 97530; 99291; J0696; J1335; J1815; J1940; J3490; J7030; J7060; Q0092